=== PATIENT | female | born 1960 | race Hispanic/Latino ===

== ENCOUNTER 2017-06-11 19:18 | Emergency (ER) | payer MEDICARE ==
[2017-06-11 20:26] VITALS: BP 173/89
--- NOTE | 2017-06-12 03:29 | Emergency Department Report ---
Eye Injury/Foreign Body - HPI Duration: 2 Days Eye Location: Bilateral Severity: Mild Eye Symptoms: Eye Pain: No, Blurred Vision: No, Eye Redness: No, Grinding/ Hammering Metal: No, Used Eye Protection: No, Contact Lens Use: No, Recalls Injury: No, Photophobia: No Other History: This is a 56-year-old female nontoxic, well nourished in appearance, no acute signs of distress presents to the ED with c/o of bilateral periorbital redness and pain x2 days. Patient denies any trauma to the region. Denies any blurry vision, headache, nausea, vomiting, chest pain, shortness of breathe, eye discharge. Patient denies any trauma to the region. Patient describes pain as aching and burning sensation. Denies any visual changes. Allergies include latex and sertraline. Past medical history includes CHF, GERD , hypertension, hep C, cirrhosis. ED Review of Systems ROS: Stated complaint: EYE SWELLING Other details as noted in HPI Constitutional: denies: chills, fever Eyes: eye pain. denies: eye discharge, vision change ENT: denies: ear pain, throat pain Respiratory: denies: cough, shortness of breath, wheezing Cardiovascular: denies: chest pain, palpitations Endocrine: no symptoms reported Gastrointestinal: denies: abdominal pain, nausea, diarrhea Genitourinary: denies: urgency, dysuria, discharge Musculoskeletal: denies: back pain, joint swelling, arthralgia Skin: denies: rash, lesions Neurological: denies: headache, weakness, paresthesias Psychiatric: denies: anxiety, depression Hematological/Lymphatic: denies: easy bleeding, easy bruising ED Past Medical Hx - Past Medical History Hx Hypertension: Yes Hx Congestive Heart Failure: Yes Hx GERD: Yes (hiatal hernia) Hx Liver Disease: Yes (Hep C, cirrhosis) Hx Psychiatric Treatment: Yes (SI, depression) - Surgical History Additional Surgical History: hiatal hernia surgery - Social History Smoking Status: Current Every Day Smoker Substance Use Type: None - Medications Home Medications: Home Medications Medication Instructions Recorded Confirmed Last Taken Type Aa8/A-Carnit/Grap/[place]/Iup866 300 mg PO TID 06/24/15 06/24/15 Unknown History [Gabadone Capsule] Butalb/Acetaminophen/Caffeine 40 mg PO TID PRN 06/24/15 06/24/15 Unknown History [Esgic 50-325-40 mg Tablet] FLUoxetine HCL [FLUoxetine] 40 mg PO QDAY 06/24/15 06/24/15 Unknown History Furosemide [Lasix TAB] 40 mg PO QDAY 06/24/15 06/24/15 Unknown History Meloxicam 15 mg PO QDAY 06/24/15 06/24/15 Unknown History Metolazone 2.5 mg PO QDAY 06/24/15 06/24/15 Unknown History Potassium Chloride [K-Tab ER] 40 meq PO QDAY 06/24/15 06/24/15 Unknown History Topiramate [Topamax] 25 mg PO QHS 06/24/15 06/24/15 Unknown History hydrALAZINE [Apresoline TAB] 25 mg PO BID 06/24/15 06/24/15 Unknown History HYDROcodone/APAP 10-325 [[place] 1 each PO Q8HR PRN #10 tablet 06/25/15 Unknown Rx 10/325] Levofloxacin [Levaquin] 750 mg PO QDAY #7 tablet 06/25/15 Unknown Rx Omeprazole [PriLOSEC] 40 mg PO QDAY #30 cap 06/25/15 Unknown Rx Ondansetron [Zofran ODT TAB] 8 mg PO Q8HR PRN #20 tab.rapdis 06/25/15 Unknown Rx traMADol [Ultram] 50 mg PO Q6HR PRN #12 tablet 06/12/17 Unknown Rx Eye Injury Exam - Exam General: Vital signs noted. No distress. Alert and acting appropriately. GENERAL: The patient is a well-developed, well-nourished female in no apparent distress. Patient is alert and acting appropriately for age. Alert and oriented 3, no apparent distress, normal gait, atraumatic. HEENT: Head is normocephalic and atraumatic. PERRL, Extraocular muscles are intact. Pupils are equal, round, and reactive to light and accommodation. Nares appeared normal. Mouth is well hydrated and without lesions. Mucous membranes are moist. Posterior pharynx clear of any exudate or lesions. Mouth is well hydrated and without lesions. Tonsils not erythematous or swollen. Uvula midline. Tongue elevated. Mucous members are moist. Posterior pharynx clear, no exudate or lesions. Patent airways. NECK: Supple. No carotid bruits. No lymphadenopathy or thyromegaly.nontender. No meningitic signs are noted. LUNGS: Clear to auscultation. Non labor breathing. No intercostal retractions. Symmetrical with respiration, no wheezing, no rales, or crackles. HEART: Regular rate and rhythm without murmur, rubs or gallops. No reproducible. S1, S2 present, regular rate and rhythm without murmur, no rubs, no gallops. ABDOMEN: Soft, nontender, and nondistended. Positive bowel sounds. No hepatosplenomegaly was noted. No guarding or rebound tenderness, negative epigastric bruit. Negative psoas sign, negative woods sign, negative McBurneys sign EXTREMITIES: Without any cyanosis, clubbing, rash, lesions or edema. Peripheral pulses intact. Capillary refill less than 2 seconds. Full range of motion bilaterally. NEUROLOGIC: Cranial nerves II through XII are grossly intact. Alert and oriented x 3. Normal gait. Symmetrical strength and sensation. Reflexes 2+ throughout. Cerebellar testing normal. GCS score of 15. PSYCHIATRIC: Normal affect with no suicidal or homicidal ideations. Skin: Bilateral periorbital erythema with tendnerness. No signs of periorbital cellulites. Skin is dry and scaly in periorbital region. - Visual Acuity Bilateral Vision Acuity Degree: 20/40 Eye Exam: Neither Injection, Neither Chemosis, Neither Abnormal Pupil, Neither EOMI, Neither Eye Foreign Body, Neither Lid Foreign Body, Neither Mucous Discharge, Neither Purulent Discharge, Neither Fluorescein Uptake, Neither Fluorescein Uptake (slit lamp), Neither Cell/Flare (slit lamp), Neither Corneal Edema, Neither Photophobia ED Course Vital Signs 06/11/17 20:24 Temperature 98.4 F Pulse Rate 92 H Respiratory 16 Rate Blood Pressure 173/89 O2 Sat by Pulse 97 Oximetry - Reevaluation(s) Reevaluation #1: 06/12/17 03:31 Patient is speaking in full sentences with no signs of distress noted. - Consultations Consultation #1: 06/12/17 03:31 Dr. Cates was consulted and examined patient and agrees to the discharge plan of care. ED Medical Decision Making - Medical Decision Making This is a 56-year-old female that presents with eyelid dermatitis. Patient is stable and was examined by me. Dr. Cates has been consulted and assessed patient and agrees to discharge plan of care. Patient was instructed to apply warm compressors. Patient is discharged with Ultram and was instructed not to operate any machinery while taking Ultram. There is no signs of any periorbital cellulitis. Patient was instructed Follow-up with a primary care doctor/shirring machine operator in 24 hours or if symptoms worsen and continue return to emergency room as soon as possible. At time time of discharge, the patient does not seem toxic or ill in appearance. No acute signs of distress noted. Patient agrees to discharge treatment plan of care. No further questions noted by the patient. Critical care attestation.: If time is entered above; I have spent that time in minutes in the direct care of this critically ill patient, excluding procedure time. ED Disposition Clinical Impression: Eyelid dermatitis, eczematous Qualifiers: Laterality: unspecified laterality Qualified Code(s): H01.139 - Eczematous dermatitis of unspecified eye, unspecified eyelid Disposition: DC- TO HOME OR SELFCARE Is pt being admited?: No Does the pt Need Aspirin: No Condition: Stable Instructions: Eczema (ED), Tramadol (By mouth) Additional Instructions: Follow-up with a primary care doctor/shirring machine operator in 24 hours or if symptoms worsen and continue return to emergency room as soon as possible. Prescriptions: traMADol [Ultram] 50 mg PO Q6HR PRN #12 tablet PRN Reason: Pain Referrals: VICKY OLIVAREZ MD [Primary Care Provider] - 3-5 Days [facility] [Outside] - 3-5 Days GERARDO MAXWELL MD [Staff Physician] - 24 Hours FRAN STOUT MD [Referring] - 24 Hours Forms: Work/School Release Form(ED)
== END 2017-06-12 05:00 | disposition home or self-care (01) ==
LOC: ED 19:18
DX: H01.132 Eczematous dermatitis of right lower eyelid (principal); H01.135 Eczematous dermatitis of left lower eyelid; I10 Essential (primary) hypertension; Z86.19 Personal history of other infectious and parasitic diseases; F32.9 Major depressive disorder, single episode, unspecified; F17.200 Nicotine dependence, unspecified, uncomplicated; I50.9 Heart failure, unspecified; Z91.040 Latex allergy status; Z88.8 Allergy status to other drugs, medicaments and biological substances
CPT/HCPCS: 99282

== ENCOUNTER 2017-07-25 07:29 | Emergency (ER) | payer MEDICARE ==
[2017-07-25 09:23] LABS: Basophils % (Auto) 0.7 % (0.0-1.8); Eosinophils # (Auto) 0.1 K/mm3 (0.0-0.4); Eosinophils % (Auto) 4.8 % (0.0-4.3); Hematocrit 38.9 % (30.3-42.9); Hemoglobin 13.1 gm/dl (10.1-14.3); Lymphocytes # (Auto) 0.8 K/mm3 (1.2-5.4); Mean Corpuscular HGB Conc 34 % (30-34); Mean Corpuscular Hemoglobin 31 pg (28-32); Mean Corpuscular Volume 91 fl (79-97); Monocytes # (Auto) 0.3 K/mm3 (0.0-0.8); Monocytes % (Auto) 10.2 % (0.0-7.3); Platelet Count 101 K/mm3 (140-440); Red Blood Count 4.26 M/mm3 (3.65-5.03); Red Cell Distribution Width 13.9 % (13.2-15.2)
--- NOTE | 2017-07-25 09:27 | XRay Report ---
CHEST TWO VIEWS: 07/25/17 07:29:00 CLINICAL: Chest pain. COMPARISON: 06/24/15 FINDINGS: Normal heart and pulmonary vasculature. The lungs are normally expanded and clear.Thoracic scoliosis. IMPRESSION: No acute cardiopulmonary process.
[2017-07-25 09:46] LABS: BUN/Creatinine Ratio 25; Blood Urea Nitrogen 15 mg/dL (7-17); Calcium 8.7 mg/dL (8.4-10.2); Hemolysis Index 27
--- NOTE | 2017-07-25 18:58 | Emergency Department Report ---
ED Chest Pain HPI - General Chief Complaint: Chest Pain Stated Complaint: ITCHING/SWELLING Time Seen by Provider: 07/25/17 18:28 Source: patient, EMS Mode of arrival: Ambulatory Limitations: No Limitations - History of Present Illness Initial Comments: States she came into the ER today because she is swelling all over per her words. States her legs and arms are swelling. She also reports a rash that itches on her back and arms, shoulders, and legs. She reports having had selling "a while ago" and was told it was her CHF. She is taking a fluid pill which she takes regularly. She denies chest pain at this time, says "a little shortness of breath but not much" and also states she has sinus problems. Admits that she used to abuse alcohol, and has cirrhosis of the liver, but has not had any alcohol in years. MD Complaint: chest pain -: Gradual Onset: during rest Pain Radiation: none Severity: moderate Quality: other (no pain) Consistency: constant Improves With: nothing Worsens With: nothing re: denies: nausea, vomting Other Symptoms: leg swelling. denies: cough, fever, syncope, rash, acid taste in mouth, palpitations, burping Treatments Prior to Arrival: none - Related Data Home Medications Medication Instructions Recorded Confirmed Last Taken Aa8/A-Carnit/Grap/[place]/Cnf913 300 mg PO TID 06/24/15 06/24/15 Unknown [Gabadone Capsule] Butalb/Acetaminophen/Caffeine 40 mg PO TID PRN 06/24/15 06/24/15 Unknown [Esgic 50-325-40 mg Tablet] FLUoxetine HCL [FLUoxetine] 40 mg PO QDAY 06/24/15 06/24/15 Unknown Furosemide [Lasix TAB] 40 mg PO QDAY 06/24/15 06/24/15 Unknown Meloxicam 15 mg PO QDAY 06/24/15 06/24/15 Unknown Metolazone 2.5 mg PO QDAY 06/24/15 06/24/15 Unknown Potassium Chloride [K-Tab ER] 40 meq PO QDAY 06/24/15 06/24/15 Unknown Topiramate [Topamax] 25 mg PO QHS 06/24/15 06/24/15 Unknown hydrALAZINE [Apresoline TAB] 25 mg PO BID 06/24/15 06/24/15 Unknown Previous Rx's Medication Instructions Recorded Last Taken Type HYDROcodone/APAP 10-325 [[place] 1 each PO Q8HR PRN #10 tablet 06/25/15 Unknown Rx 10325] Levofloxacin [Levaquin] 750 mg PO QDAY #7 tablet 06/25/15 Unknown Rx Omeprazole [PriLOSEC] 40 mg PO QDAY #30 cap 06/25/15 Unknown Rx Ondansetron [Zofran ODT TAB] 8 mg PO Q8HR PRN #20 tab.rapdis 06/25/15 Unknown Rx traMADol [Ultram] 50 mg PO Q6HR PRN #12 tablet 06/12/17 Unknown Rx Hydroxyzine HCl 50 mg PO TID PRN #30 tablet 07/25/17 Unknown Rx Allergies Allergy/AdvReac Type Severity Reaction Status Date / Time latex Allergy Itching Verified 06/24/15 19:24 sertraline [From Zoloft] Allergy Unknown Verified 06/11/17 20:26 Heart Score - HEART Score History: Slightly suspicious EKG: Non-specific Age: 45-65 Risk factors: 1-2 risk factors Troponin: < normal limit HEART Score: 3 ED Review of Systems ROS: Stated complaint: ITCHING/SWELLING Other details as noted in HPI Comment: All other systems reviewed and negative Constitutional: see HPI Eyes: as per HPI ENT: as per HPI Respiratory: see HPI Cardiovascular: as per HPI Endocrine: see HPI Gastrointestinal: as per HPI Genitourinary: as per HPI Musculoskeletal: as per HPI Skin: as per HPI Neurological: as per HPI Psychiatric: as per HPI Hematological/Lymphatic: as per HPI ED Past Medical Hx - Past Medical History Previous Medical History?: Yes Hx Hypertension: Yes Hx Congestive Heart Failure: Yes Hx GERD: Yes (hiatal hernia) Hx Liver Disease: Yes (Hep C, cirrhosis) Hx Psychiatric Treatment: Yes (SI, depression) - Surgical History Past Surgical History?: Yes Additional Surgical History: hiatal hernia surgery. right ankle - Social History Smoking Status: Current Every Day Smoker Substance Use Type: None - Medications Home Medications: Home Medications Medication Instructions Recorded Confirmed Last Taken Type Aa8/A-Carnit/Grap/[place]/Vop921 300 mg PO TID 06/24/15 06/24/15 Unknown History [Gabadone Capsule] Butalb/Acetaminophen/Caffeine 40 mg PO TID PRN 06/24/15 06/24/15 Unknown History [Esgic 50-325-40 mg Tablet] FLUoxetine HCL [FLUoxetine] 40 mg PO QDAY 06/24/15 06/24/15 Unknown History Furosemide [Lasix TAB] 40 mg PO QDAY 06/24/15 06/24/15 Unknown History Meloxicam 15 mg PO QDAY 06/24/15 06/24/15 Unknown History Metolazone 2.5 mg PO QDAY 06/24/15 06/24/15 Unknown History Potassium Chloride [K-Tab ER] 40 meq PO QDAY 06/24/15 06/24/15 Unknown History Topiramate [Topamax] 25 mg PO QHS 06/24/15 06/24/15 Unknown History hydrALAZINE [Apresoline TAB] 25 mg PO BID 06/24/15 06/24/15 Unknown History HYDROcodone/APAP 10-325 [[place] 1 each PO Q8HR PRN #10 tablet 06/25/15 Unknown Rx 10/325] Levofloxacin [Levaquin] 750 mg PO QDAY #7 tablet 06/25/15 Unknown Rx Omeprazole [PriLOSEC] 40 mg PO QDAY #30 cap 06/25/15 Unknown Rx Ondansetron [Zofran ODT TAB] 8 mg PO Q8HR PRN #20 tab.rapdis 06/25/15 Unknown Rx traMADol [Ultram] 50 mg PO Q6HR PRN #12 tablet 06/12/17 Unknown Rx Hydroxyzine HCl 50 mg PO TID PRN #30 tablet 07/25/17 Unknown Rx ED Physical Exam - General Limitations: No Limitations General appearance: alert, in no apparent distress - Head Head exam: Present: atraumatic - Eye Eye exam: Present: normal appearance, PERRL, EOMI - ENT ENT exam: Present: normal exam - Neck Neck exam: Present: normal inspection, full ROM - Respiratory Respiratory exam: Present: normal lung sounds bilaterally. Absent: respiratory distress, wheezes, rales, rhonchi - Cardiovascular Cardiovascular Exam: Present: regular rate, normal rhythm, normal heart sounds - GI/Abdominal GI/Abdominal exam: Present: soft, normal bowel sounds. Absent: distended, tenderness, guarding, rebound, rigid - Extremities Exam Extremities exam: Present: normal inspection, full ROM - Back Exam Back exam: Present: normal inspection, full ROM - Neurological Exam Neurological exam: Present: alert, oriented X3, CN II-XII intact, normal gait - Psychiatric Psychiatric exam: Present: normal affect, normal mood - Skin Skin exam: Present: warm, dry, intact, normal color ED Course Vital Signs 07/25/17 07/25/17 07/25/17 08:19 17:18 17:30 Temperature 98.1 F Pulse Rate 87 90 83 Respiratory 18 11 L 15 Rate Blood Pressure 134/87 163/93 Blood Pressure [Left] O2 Sat by Pulse 96 99 99 Oximetry 07/25/17 07/25/17 07/25/17 17:46 18:00 18:16 Temperature Pulse Rate 79 75 72 Respiratory 16 11 L 12 Rate Blood Pressure 163/93 130/75 130/75 Blood Pressure [Left] O2 Sat by Pulse 99 99 99 Oximetry 07/25/17 07/25/17 07/25/17 18:30 18:34 18:46 Temperature 98.4 F Pulse Rate 74 73 76 Respiratory 11 L 14 18 Rate Blood Pressure 134/77 134/77 Blood Pressure 134/77 [Left] O2 Sat by Pulse 99 98 97 Oximetry 07/25/17 07/25/17 07/25/17 19:00 19:16 19:30 Temperature Pulse Rate 78 82 81 Respiratory 18 17 13 Rate Blood Pressure 134/77 134/77 134/77 Blood Pressure [Left] O2 Sat by Pulse 97 97 97 Oximetry 07/25/17 21:06 Temperature 97.9 F Pulse Rate 79 Respiratory 16 Rate Blood Pressure Blood Pressure 144/87 [Left] O2 Sat by Pulse 97 Oximetry - Reevaluation(s) Reevaluation #1: 07/25/17 21:14 I explained that all of her tests are essentially negative and that she needs to follow up with her PMD. I will discharge her accordingly. ED Medical Decision Making - Lab Data Result diagrams: 07/25/17 09:07 07/25/17 09:07 Critical care attestation.: If time is entered above; I have spent that time in minutes in the direct care of this critically ill patient, excluding procedure time. ED Disposition Clinical Impression: Generalized pruritus Edema Qualifiers: Edema type: unspecified Qualified Code(s): R60.9 - Edema, unspecified Disposition: DC-01 TO HOME OR SELFCARE Is pt being admited?: No Does the pt Need Aspirin: No Condition: Stable Instructions: Itchy Skin (ED), Leg Edema (ED) Additional Instructions: Rest, fluids, follow up with your doctor, watch for worsening, new symptoms. Prescriptions: Hydroxyzine HCl 50 mg PO TID PRN #30 tablet PRN Reason: Itching Referrals: PRIMARY CARE, [Primary Care Provider] - 3-5 Days
[2017-07-25 20:12] LABS: INR 0.96 (0.87-1.13)
[2017-07-25 20:13] LABS: Partial Thromboplastin Time 35.9 Sec. (24.2-36.6)
[2017-07-25 20:18] LABS: Alanine Aminotransferase 27 units/L (7-56); Albumin 4.2 g/dL (3.9-5)
[2017-07-25 20:39] LABS: Bilirubin,Direct < 0.2 mg/dL (0-0.2)
[2017-07-25 21:08] VITALS: BP 144/87
== END 2017-07-25 21:59 | disposition home or self-care (01) ==
LOC: ED 07:29
DX: L29.8 Other pruritus (principal); R60.9 Edema, unspecified; I10 Essential (primary) hypertension; I50.9 Heart failure, unspecified; K21.9 Gastro-esophageal reflux disease without esophagitis; F17.200 Nicotine dependence, unspecified, uncomplicated; F32.9 Major depressive disorder, single episode, unspecified; Z91.040 Latex allergy status; Z91.013 Allergy to seafood; Z88.8 Allergy status to other drugs, medicaments and biological substances
CPT/HCPCS: 36415; 71046; 80048; 80074; 82140; 83880; 84484; 85025; 85610; 85730; 93005; 93010